=== PATIENT | female | born 1990 | race Caucasian/White ===

== ENCOUNTER 2017-03-21 17:58 | Emergency (ER) | payer MEDICAID, OTHER ==
[~2017-03-21] VITALS: Ht 165.1 cm; Wt 71.0 kg
[2017-03-21 18:06] VITALS: BP 111/67
== END 2017-03-22 02:01 | disposition left against medical advice (07) ==
LOC: ER 03-22 01:27
DX: Z53.21 Procedure and treatment not carried out due to patient leaving prior to being seen by health care provider (principal)